=== PATIENT | female | born 1935 | race Two or more races ===

== ENCOUNTER 2020-09-20 10:16 | Emergency (ER) | payer SELFPAY ==
[2020-09-20] MEDS ORDERED: Sodium Chloride 0.9% 2.5 ML Syringe FLUSH PRN (10:28)
[2020-09-20] MEDS ORDERED: Aspirin 81 MG Tab.Chew PO ONE (10:28)
[2020-09-20] MEDS ORDERED: Sodium Chloride 0.9% 10 ML Syringe FLUSH PRN (10:28)
--- NOTE | 2020-09-20 10:32 | PCM.EKG ---
#1 Interpretation EKG Date: 09/20/20 Time: 10:20 Rhythm: NSR Rate (Beats/Min): 86 ST-T: Normal
--- NOTE | 2020-09-20 10:52 | EDM.PDOC ---
ED HPI GENERAL MEDICAL PROBLEM - General Chief Complaint: Chest Pain Stated Complaint: SOB Time Seen by Provider: 09/20/20 10:26 Source of Information: Reports: Patient History Limitations: Reports: No Limitations - History of Present Illness INITIAL COMMENTS - FREE TEXT/NARRATIVE: HISTORY AND PHYSICAL: History of present illness: Patient is an 85-year-old female who presents to the emergency room with her granddaughter with complaints of chest pain, shortness of breath and bilateral calf pain. States she woke up with chest pain and SOB, this has resolved and now has bilateral leg/calf/knee pain. The granddaughter states that over the past few weeks the patient has had several health complaints such as chest pain and shortness of breath. Patient was previously was living in [place], moved to [place] this past week to be with granddaughter. Granddaughter states the patient had been on so many different medications all the time, "we don't know what she was on or why". Patient states she just took medications that the doctor gave her. PMH of DM type 2, hypertension and "fluid on my lungs". 2 weeks ago she was having chest pain and shortness of breath, was seen by provider and placed on oxygen. Was told she had a bladder infection, but was not treated with any antibiotics. Patient states she is unsure of why she was placed on oxygen but did feel improvement when using it. Most recently she has been taking digoxin and lisinopril, and Metformin but ran out of these medications 2 weeks ago. Patient denies any fever, chills, headache, change in vision, syncope or near syncope. Denies any current chest pain, back pain, shortness of breath or cough. Denies any abdominal pain, nausea, vomiting, diarrhea, constipation or dysuria. Has not noted any blood in urine or stool. Patient has been eating and drinking appropriately. Primary language: Azeri. Market Sales Manager used (BEE/daughter) Review of systems: As per history of present illness and below otherwise all systems reviewed and negative. Past medical history: As per history of present illness and as reviewed below otherwise noncontributory. Surgical history: As per history of present illness and as reviewed below otherwise noncontributory. Social history: See social history for further information Family history: As per history of present illness and as reviewed below otherwise noncontributory. Physical exam: General: Well developed and well nourished. Alert and orientated x 3. Nontoxic in appearance and in no acute distress. Vital signs are stable and have been reviewed by me. Nursing notes were reviewed. HEENT: Atraumatic, normocephalic, pupils equal and reactive bilaterally, negative for conjunctival pallor or scleral icterus, mucous membranes moist, TMs normal bilaterally, throat clear, neck supple, nontender, trachea midline. No drooling or trismus noted. No meningeal signs. No hot potato voice noted. Lungs: Slightly diminished to auscultation bilaterally. No wheezes, rales, or rhonchi. Chest nontender. Normal work of breathing, no accessory muscles used. Heart: S1S2, regular rate and rhythm without overt murmur, gallops, or rubs. No JVD. No peripheral edema Abdomen: Soft, nondistended, nontender. Normoactive bowel sounds. Negative for masses or costovertebral tenderness. Pelvis: Stable nontender. Genitourinary/Rectal: Deferred. Skin: Intact, warm, dry. No lesions or rashes noted. Hematologic: No petechiae or purpra. Mucosa appropriate color and normal nail bed color and refill. Extremities: Atraumatic, moves all extremities per self without difficulty or deficits, bilateral calf pain (no swelling, redness, or obvious deformity). Strong pedal and pretibial pulses bilaterally. Neurovascular unremarkable. Neuro: Awake, alert, oriented. Cranial nerves II through XII unremarkable. Cerebellum unremarkable. Motor and sensory unremarkable throughout. Exam nonfocal. Psychiatric: Mood and affect are appropriate. Normal thought process. Answering questions appropriately. Notes: *This patient was seen and evaluated during the 2019 SARS-CoV-2 novel coronavirus pandemic period. Community viral transmission is ongoing at time of this encounter and the emergency department is operating under pandemic response procedures. Chest x-ray shows mild cardiomegaly and pulmonary venous congestion but no pulmonary edema. Bilateral lower extremity ultrasound is negative. Patient's D-dimer is elevated, will do a CT to rule out PE. CT chest shows no evidence of pulmonary embolism. Mild cardiomegaly with aortic valve calcifications. Shallow inspiration with crowded markings/ground-glass opacity and subsegmental atelectasis or scarring in both bases. Vital signs are stable. I have talked with the patient about today's findings, in addition to providing specific details for plan of care. Due to patient's medications, age and drug interactions I will put her on Augmentin for her UTI. Culture has been added. Reassessment at the time of disposition demonstrates that the patient is in no acute distress. The patient is stable for discharge, counseling was provided and we discussed in great detail signs and symptoms that would prompt them to return to the Emergency Department. Medication, follow up and supportive care measures were reviewed and discussed. Voices understanding and is agreeable to plan of care. Denies any further questions or concerns at this time. Diagnostics: CBC, CMP, D.Dimer, Troponin, EKG, CXR, Bilat LE U/S, CTA chest Therapeutics: NS, ASA, Toradol Prescription: Augmentin Impression: Chest pain nonspecific Medication refill UTI Plan: 1. Your lab work is unremarkable, with the exception of a bladder infection. Please take your antibiotic as directed. Increase your water intake. Your EKG, CXR and CT chest shows no acute or concerning findings. Due to your recent move to [place] and not having all your medications refilled, I would like you to establish care with a primary care provider and be seen in the next 1 week or so. You can then establish care and have all your medications reviewed and refilled if needed. 2. You can alternate Tylenol and ibuprofen as needed for pain and fever management. 3. If your symptoms should worsen, new symptoms develop or any of the signs and symptoms we discussed should arise please return to the emergency room or call 911 (if needed). Definitive disposition and diagnosis as appropriate pending reevaluation and review of above. Right Leg Pain Score (Numeric/FACES): 5 - Related Data Allergies Allergy/AdvReac Type Severity Reaction Status Date / Time No Known Allergies Allergy Verified 09/20/20 10:41 Home Meds: Home Meds Apetifeno 25 mg PO DAILY 09/20/20 [History] Cipril 10 mg PO DAILY 09/20/20 [History] Digoxin 250 mcg PO DAILY 09/20/20 [History] lisinopriL [Lisinopril] 10 mg PO DAILY #30 tablet 09/20/20 [Rx] metFORMIN [Glucophage XR] 500 mg PO BIDMEALS 09/20/20 [History] metFORMIN [Glucophage] 500 mg PO BIDMEALS 30 Days #60 tab 09/20/20 [Rx] ED ROS GENERAL - Review of Systems Review Of Systems: Comprehensive ROS is negative, except as noted in HPI. ED EXAM, GENERAL - Physical Exam Exam: See Below (See dictation) Course - Vital Signs Last Recorded V/S: Last Vital Signs Temp 97.3 F 09/20/20 10:34 Pulse 63 09/20/20 13:59 Resp 16 09/20/20 13:59 BP 148/67 H 09/20/20 13:59 Pulse Ox 93 L 09/20/20 13:59 - Orders/Labs/Meds Orders: Active Orders 24 hr Category Date Time Status EKG 12 Lead [EKG Documentation Completion] [RC] STAT Care 09/20/20 12:10 Active UA RFX MICHAEL AND CULT IF INDIC [URIN] Stat Lab 09/20/20 14:25 Received Sodium Chloride 0.9% [Saline Flush] Med 09/20/20 10:28 Active 10 ml FLUSH ASDIRECTED PRN Sodium Chloride 0.9% [Saline Flush] Med 09/20/20 10:28 Active 2.5 ml FLUSH ASDIRECTED PRN Saline Lock Insert [OM.PC] Stat Oth 09/20/20 10:28 Ordered Medication Orders Sodium Chloride (Saline Flush) 10 ml FLUSH ASDIRECTED PRN PRN Reason: Keep Vein Open Last Admin: 09/20/20 10:49 Dose: 10 ml Documented by: [email or web address] Sodium Chloride (Saline Flush) 2.5 ml FLUSH ASDIRECTED PRN PRN Reason: Keep Vein Open Last Admin: 09/20/20 10:49 Dose: 2.5 ml Documented by: [email or web address] Labs: Laboratory Tests 09/20/20 09/20/20 09/20/20 Range/Units 10:25 10:25 10:25 WBC 3.95 L (4.0-11.0) K/uL RBC 4.51 (4.30-5.90) M/uL Hgb 13.1 (12.0-16.0) g/dL Hct 41.4 (36.0-46.0) % MCV 91.8 (80.0-98.0) fL MCH 29.0 (27.0-32.0) pg MCHC 31.6 (31.0-37.0) g/dL RDW Std Deviation 45.0 (28.0-62.0) fl RDW Coeff of [place] 13 (11.0-15.0) % Plt Count 249 (150-400) K/uL MPV 10.80 (7.40-12.00) fL Neut % (Auto) 49.6 (48.0-80.0) % Lymph % (Auto) 38.7 (16.0-40.0) % [place] % (Auto) 8.4 (0.0-15.0) % Eos % (Auto) 2.5 (0.0-7.0) % Baso % (Auto) 0.8 (0.0-1.5) % Neut # (Auto) 2.0 (1.4-5.7) K/uL Lymph # (Auto) 1.5 (0.6-2.4) K/uL [place] # (Auto) 0.3 (0.0-0.8) K/uL Eos # (Auto) 0.1 (0.0-0.7) K/uL Baso # (Auto) 0.0 (0.0-0.1) K/uL Nucleated RBC % 0.0 /100WBC Nucleated RBCs # 0 K/uL INR 1.00 D-Dimer, Quantitative 0.52 H (0.0-0.50) mg/L FEU Sodium 141 (136-145) mmol/L Potassium 3.4 L (3.5-5.1) mmol/L Chloride 105 (98-107) mmol/L Carbon Dioxide 26.1 (21.0-32.0) mmol/L BUN 11 (7.0-18.0) mg/dL Creatinine 0.8 (0.6-1.0) mg/dL Est Cr Clr Drug Dosing 36.26 mL/min Estimated GFR (MDRD) > 60.0 ml/min Glucose 157 H (74-106) mg/dL Calcium 9.2 (8.5-10.1) mg/dL Total Bilirubin 0.5 (0.2-1.0) mg/dL AST 20 (15-37) IU/L ALT 33 (14-63) IU/L Alkaline Phosphatase 73 (46-116) U/L Troponin I < 0.050 (0.000-0.056) ng/mL Total Protein 7.2 (6.4-8.2) g/dL Albumin 3.3 L (3.4-5.0) g/dL Globulin 3.9 (2.6-4.0) g/dL Albumin/Globulin Ratio 0.9 (0.9-1.6) Urine Color Urine Appearance Urine pH (5.0-8.0) Ur Specific [place] (1.001-1.035) Urine Protein (NEGATIVE) mg/dL Urine Glucose (UA) (NEGATIVE) mg/dL Urine Ketones (NEGATIVE) mg/dL Urine Occult Blood (NEGATIVE) Urine Nitrite (NEGATIVE) Urine Bilirubin (NEGATIVE) Urine Urobilinogen (<2.0) EU/dL Ur Leukocyte Esterase (NEGATIVE) Urine RBC (0-2/HPF) Urine WBC (0-5/HPF) Ur Epithelial Cells (NONE-FEW) Urine Bacteria (NEGATIVE) SARS-CoV-2 RNA (KALI) (NEGATIVE) 09/20/20 09/20/20 Range/Units 12:01 14:25 WBC (4.0-11.0) K/uL RBC (4.30-5.90) M/uL Hgb (12.0-16.0) g/dL Hct (36.0-46.0) % MCV (80.0-98.0) fL MCH (27.0-32.0) pg MCHC (31.0-37.0) g/dL RDW Std Deviation (28.0-62.0) fl RDW Coeff of [place] (11.0-15.0) % Plt Count (150-400) K/uL MPV (7.40-12.00) fL Neut % (Auto) (48.0-80.0) % Lymph % (Auto) (16.0-40.0) % [place] % (Auto) (0.0-15.0) % Eos % (Auto) (0.0-7.0) % Baso % (Auto) (0.0-1.5) % Neut # (Auto) (1.4-5.7) K/uL Lymph # (Auto) (0.6-2.4) K/uL [place] # (Auto) (0.0-0.8) K/uL Eos # (Auto) (0.0-0.7) K/uL Baso # (Auto) (0.0-0.1) K/uL Nucleated RBC % /100WBC Nucleated RBCs # K/uL INR D-Dimer, Quantitative (0.0-0.50) mg/L FEU Sodium (136-145) mmol/L Potassium (3.5-5.1) mmol/L Chloride (98-107) mmol/L Carbon Dioxide (21.0-32.0) mmol/L BUN (7.0-18.0) mg/dL Creatinine (0.6-1.0) mg/dL Est Cr Clr Drug Dosing mL/min Estimated GFR (MDRD) ml/min Glucose (74-106) mg/dL Calcium (8.5-10.1) mg/dL Total Bilirubin (0.2-1.0) mg/dL AST (15-37) IU/L ALT (14-63) IU/L Alkaline Phosphatase (46-116) U/L Troponin I (0.000-0.056) ng/mL Total Protein (6.4-8.2) g/dL Albumin (3.4-5.0) g/dL Globulin (2.6-4.0) g/dL Albumin/Globulin Ratio (0.9-1.6) Urine Color YELLOW Urine Appearance SLT CLOUDY Urine pH 6.0 (5.0-8.0) Ur Specific [place] <= 1.005 (1.001-1.035) Urine Protein NEGATIVE (NEGATIVE) mg/dL Urine Glucose (UA) NEGATIVE (NEGATIVE) mg/dL Urine Ketones NEGATIVE (NEGATIVE) mg/dL Urine Occult Blood TRACE-INTACT H (NEGATIVE) Urine Nitrite POSITIVE H (NEGATIVE) Urine Bilirubin NEGATIVE (NEGATIVE) Urine Urobilinogen 0.2 (<2.0) EU/dL Ur Leukocyte Esterase SMALL H (NEGATIVE) Urine RBC 0-2 (0-2/HPF) Urine WBC 8-12 (0-5/HPF) Ur Epithelial Cells FEW (NONE-FEW) Urine Bacteria 3+ H (NEGATIVE) SARS-CoV-2 RNA (KALI) NEGATIVE (NEGATIVE) Meds: Medications Generic Name Dose Route Start Last Admin Trade Name Freq PRN Reason Stop Dose Admin Sodium Chloride 10 ml 09/20/20 10:28 09/20/20 10:49 Saline Flush FLUSH 10 ml ASDIRECTED PRN Administration Keep Vein Open Sodium Chloride 2.5 ml 09/20/20 10:28 09/20/20 10:49 Saline Flush FLUSH 2.5 ml ASDIRECTED PRN Administration Keep Vein Open Discontinued Medications Generic Name Dose Route Start Last Admin Trade Name Juliana PRN Reason Stop Dose Admin Amoxicillin/Clavulanate Potassium 1 tab 09/20/20 14:46 Augmentin 875 Mg/125 Mg PO 09/20/20 14:47 ONETIME ONE Aspirin 324 mg 09/20/20 10:28 09/20/20 10:48 Aspirin PO 09/20/20 10:29 324 mg ONETIME ONE Administration Iopamidol 80 ml 09/20/20 12:44 09/20/20 12:55 Isovue Multipack-370 (76%) IVPUSH 09/20/20 12:45 80 ml ONETIME STA Administration Ketorolac Tromethamine 15 mg 09/20/20 14:24 09/20/20 14:29 Toradol IVPUSH 09/20/20 14:25 15 mg NOW STA Administration Departure - Departure Time of Disposition: 14:30 Disposition: Home, Self-Care 01 Clinical Impression: Medication refill, Nonspecific chest pain UTI (urinary tract infection) Qualifiers: Urinary tract infection type: acute cystitis Hematuria presence: with hematuria Qualified Code(s): N30.01 - Acute cystitis with hematuria - Discharge Information Prescriptions: metFORMIN [Glucophage] 500 mg PO BIDMEALS 30 Days #60 tab lisinopriL [Lisinopril] 10 mg PO DAILY #30 tablet Instructions: Urinary Tract Infection, Adult, [id number], Nonspecific Chest Pain, Adult, [id number] Referrals: PCP,Not In Area [Primary Care Provider] - Forms: ED Department Discharge Additional Instructions: The following information is given to patients seen in the emergency department who are being discharged to home. This information is to outline your options for follow-up care. We provide all patients seen in our emergency department with a follow-up referral. The need for follow-up, as well as the timing and circumstances, are variable depending upon the specifics of your emergency department visit. If you don't have a primary care physician on staff, we will provide you with a referral. We always advise you to contact your personal physician following an emergency department visit to inform them of the circumstance of the visit and for follow-up with them and/or the need for any referrals to a consulting specialist. The emergency department will also refer you to a specialist when appropriate. This referral assures that you have the opportunity for follow-up care with a specialist. All of these measure are taken in an effort to provide you with optimal care, which includes your follow-up. Under all circumstances we always encourage you to contact your private physician who remains a resource for coordinating your care. When calling for follow-up care, please make the office aware that this follow-up is from your recent emergency room visit. If for any reason you are refused follow-up, please contact the [facility] Emergency Department at and asked to speak to the emergency department charge nurse. [facility] [address] [place] [id number] [address] Thank you for choosing the [facility] emergency department in [place] for your medical needs today. It was a pleasure caring for you. Today you were seen in the emergency department for chest pain, shortness of breath and leg pain. 1. Your lab work is unremarkable, with the exception of a bladder infection. Please take your antibiotic as directed. Increase your water intake. Your EKG, CXR and CT chest shows no acute or concerning findings. Due to your recent move to [place] and not having all your medications refilled, I would like you to establish care with a primary care provider and be seen in the next 1 week or so. You can then establish care and have all your medications reviewed and refilled if needed. 2. You can alternate Tylenol and ibuprofen as needed for pain and fever management. 3. If your symptoms should worsen, new symptoms develop or any of the signs and symptoms we discussed should arise please return to the emergency room or call 911 (if needed). Sepsis Event Note (ED) - Focused Exam Vital Signs: Vital Signs Temp Pulse Resp BP Pulse Ox 09/20/20 13:59 63 16 148/67 H 93 L 09/20/20 13:30 74 16 159/59 H 96 09/20/20 13:00 72 16 159/52 H 96 09/20/20 12:30 74 16 147/71 H 94 L 09/20/20 12:14 74 16 138/72 97 09/20/20 12:00 71 16 120/75 96 09/20/20 11:44 66 16 157/65 H 94 L 09/20/20 11:29 68 16 148/66 H 93 L 09/20/20 11:14 73 16 141/69 H 93 L 09/20/20 11:00 77 16 147/69 H 94 L 09/20/20 10:45 76 17 170/64 H 93 L 09/20/20 10:34 97.3 F 86 18 184/96 H 97 - My Orders Last 24 Hours: My Active Orders 09/20/20 10:28 Sodium Chloride 0.9% [Saline Flush] 10 ml FLUSH ASDIRECTED PRN Sodium Chloride 0.9% [Saline Flush] 2.5 ml FLUSH ASDIRECTED PRN Saline Lock Insert [OM.PC] Stat 09/20/20 14:25 UA RFX MICHAEL AND CULT IF INDIC [URIN] Stat - Assessment/Plan Last 24 Hours: My Active Orders 09/20/20 10:28 Sodium Chloride 0.9% [Saline Flush] 10 ml FLUSH ASDIRECTED PRN Sodium Chloride 0.9% [Saline Flush] 2.5 ml FLUSH ASDIRECTED PRN Saline Lock Insert [OM.PC] Stat 09/20/20 14:25 UA RFX MICHAEL AND CULT IF INDIC [URIN] Stat
[2020-09-20 11:04] LABS: BLOOD UREA NITROGEN,BUN 11 mg/dL (7.0-18.0); CARBON DIOXIDE,CO2 26.1 mmol/L (21.0-32.0); CHLORIDE,CL 105 mmol/L (98-107); GLUCOSE RANDOM 157 mg/dL (74-106); POTASSIUM,K 3.4 mmol/L (3.5-5.1); SODIUM,NA 141 mmol/L (136-145)
--- NOTE | 2020-09-20 11:22 | CR ---
INDICATION: SOB. TECHNIQUE: Portable AP image of the chest. COMPARISON: None. FINDINGS: Lordotic projection. Lungs and pleural space is clear. Heart mildly enlarged. Pulmonary veins congested. No significant bony abnormality. IMPRESSION: Mild cardiomegaly and pulmonary venous congestion but no pulmonary edema. Dictated by Leno Gutierrez MD @ Sep 20 2020 11:20AM Signed by Dr. Leno Gutierrez @ Sep 20 2020 11:22AM
--- NOTE | 2020-09-20 11:22 | US ---
INDICATION: Bilateral calf pain. Recent car travel. TECHNIQUE: Grayscale two-dimensional ultrasound without and with compression as well as color-flow and spectral Doppler of the lower extremity veins bilaterally. COMPARISON: None. FINDINGS: Normal compressibility of and flow within the common femoral, superficial femoral, popliteal, posterior tibial, profunda, and greater saphenous veins is demonstrated bilaterally. No thrombus is identified. IMPRESSION: Negative bilateral lower extremity venous Doppler study. Dictated by Leno Gutierrez MD @ Sep 20 2020 11:19AM Signed by Dr. Leno Gutierrez @ Sep 20 2020 11:20AM
[2020-09-20] MEDS ORDERED: Iopamidol 755 MG/ML 500 ML Multipack Bottle IVPUSH STA (12:44)
--- NOTE | 2020-09-20 14:12 | CT ---
INDICATION: Chest pain and SOB. Recent travel. Rule out pulmonary embolism. TECHNIQUE: Volumetric helical scanning of the thorax was performed during infusion of 80 cc of Isovue 370 contrast material IV, timing optimized for pulmonary arterial opacification. Coronal and sagittal reconstructions were obtained. COMPARISON: Chest x-ray of 09/20/2020. FINDINGS: The images are of acceptable quality and demonstrate uniform vascular enhancement within the pulmonary arteries. No pulmonary arterial filling defect is identified. The heart is mildly enlarged. Aortic valve calcifications are noted. Calcified coronary arterial plaque is demonstrated. The lungs are low in volume with crowded markings/ground-glass opacity. Subsegmental atelectasis or scarring is present in the lung bases. No pleural effusion is demonstrated. No airway abnormality is evident. No mediastinal or hilar lymphadenopathy is demonstrated. Images of the upper abdomen are unremarkable except for a 2 cm left renal parenchymal cyst. IMPRESSION: 1. Negative for pulmonary embolism. 2. Mild cardiomegaly with aortic valve calcifications. 3. Shallow inspiration with crowded markings/ground-glass opacity and subsegmental atelectasis or scarring in both bases. Please note that all CT scans at this facility use dose modulation, iterative reconstruction, and/or weight-based dosing when appropriate to reduce radiation dose to as low as reasonably achievable. Dictated by Leno Gutierrez MD @ Sep 20 2020 2:05PM Signed by Dr. Leno Gutierrez @ Sep 20 2020 2:10PM
[2020-09-20] MEDS ORDERED: Ketorolac 15 MG/ML SDV IVPUSH STA (14:24)
[2020-09-20] MEDS ORDERED: Amoxicillin/Clavulanate K 875-125 MG Tab PO ONE (14:46)
== END 2020-09-20 15:12 | disposition home or self-care (01) ==
LOC: MW.ED 10:16
DX: R07.9 Chest pain, unspecified (principal); Z76.0 Encounter for issue of repeat prescription; E11.9 Type 2 diabetes mellitus without complications; I10 Essential (primary) hypertension; N30.01 Acute cystitis with hematuria; Z79.84 Long term (current) use of oral hypoglycemic drugs; Z79.899 Other long term (current) drug therapy; Z20.822 Contact with and (suspected) exposure to COVID-19
CPT/HCPCS: 36415; 71045; 71275; 80053; 81001; 84484; 85025; 85379; 85610; 87086; 87088; 87186; 87635; 93005; 93970; 96374; 99285; A9270; J1885; Q9967; 93010; 99284; U0002

== ENCOUNTER 2020-09-21 13:01 | Emergency (ER) | payer SELFPAY ==
--- NOTE | 2020-09-21 14:37 | PCM.EKG ---
#1 Interpretation EKG Date: 09/21/20 Time: 13:58 Rhythm: NSR EKG Interpretation Comments: Heart rate = 74 bpm, normal sinus rhythm, normal QRS interval, no STEMI. EKG and rhythm strip interpreted by me at 135
--- NOTE | 2020-09-21 14:54 | CT ---
INDICATION: Abdominal pain COMPARISON: None TECHNIQUE: CT examination of the abdomen and pelvis was performed without intravenous contrast. Thin section axial images were obtained from the lung bases through the pubic symphysis. Oral contrast was not administered. Please note that all CT scans at this facility use dose modulation, iterative reconstruction, and/or weight-based dosing when appropriate to reduce radiation dose to as low as reasonably achievable. FINDINGS: LUNG BASES: Heart is enlarged at the lung bases. There atherosclerotic vascular and valvular calcifications. Opacities of the lung bases are likely atelectatic and fibrotic. No visible pleural effusion. LIVER/BILIARY SYSTEM:Liver normal in size. There is a 2 centimeter right lobe cyst. No biliary ductal dilatation. Evidence of remote granulomatous infection. Contrast within the gallbladder from an injection performed for a chest CT yesterday. ADRENALS: Normal non-contrast appearance KIDNEYS, URETERS and BLADDER:Bilateral renal lesions. These could represent cysts though there may be some wall calcification associated with the right mid pole renal lesion. The kidneys could be further studied by multiphase CT with and without contrast if clinically warranted. Renal calcifications are noted without evidence of obstructive uropathy. The bladder appears normal SPLEEN:Normal non-contrast appearance. PANCREAS: Normal non-contrast appearance. RETROPERITONEUM and MESENTERY: There is no mass, adenopathy or aortic aneurysm. Atherosclerotic vascular calcification GASTROINTESTINAL SYSTEM: There is no evidence of diverticulitis, colitis, mechanical obstruction, or appendicitis. The small bowel as visualized appears normal. PELVIS: No mass, adenopathy or free fluid. OSSEOUS STRUCTURES and ABDOMINAL WALL: Demineralization and degenerative change without acute fracture or destructive process.No significant anterior abdominal wall defects. OTHER: No free fluid or free air. IMPRESSION: 1. There is no visible etiology for abdominal pain. 2. Enlarged heart. Basilar parenchymal opacities likely atelectatic and fibrotic. 3. Probably benign but strictly speaking indeterminate renal lesions. These would best be study by multiphase CT which should be considered at a clinically appropriate time. 4. Other incidental nonacute appearing findings as discussed above Please note that all CT scans at this facility use dose modulation, iterative reconstruction, and/or weight-based dosing when appropriate to reduce radiation dose to as low as reasonably achievable. Dictated by Tavon Hicks MD @ Sep 21 2020 2:42PM Signed by Dr. Tavon Hicks @ Sep 21 2020 2:51PM
--- NOTE | 2020-09-21 16:00 | EDM.PDOC ---
ED HPI GENERAL MEDICAL PROBLEM - General Chief Complaint: Gastrointestinal Problem Stated Complaint: STOMACHE AND BREATHING Time Seen by Provider: 09/21/20 13:27 Source of Information: Reports: Patient History Limitations: Reports: No Limitations - History of Present Illness INITIAL COMMENTS - FREE TEXT/NARRATIVE: Patient is an 85-year-old female who presents to the emergency room with her granddaughter with complaints of abdominal pain patient does not speak Icelandic but her granddaughter is fluent in both Icelandic and Armenian. The patient points to pain on either side of the umbilicus. The granddaughter states that over the past the past few weeks patient has had several complaints such as chest pain, shortness of breath and knee pain. In fact, she was seen in this emergency room yesterday with a complaint of chest pain, shortness of breath and bilateral calf pain. She was worked up with a CT angio of the chest, EKG x2, lab work. No acute findings except UTI. She was given prescriptions for Metformin, lisinopril and Augmentin and discharged. Patient was previously living in [place] and moved to [place] this past week to be with her granddaughter. The granddaughter states the patient has been on many different medications all of the time but they did not know what the medications were or why she was taking them. Known past medical history of diabetes type 2, hypertension and CHF. Most recently, she had been taking digoxin, lisinopril and Metformin but ran out of these medications 2 weeks ago. About 2 weeks ago she was having chest pain and shortness of breath and was seen by a provider and placed on oxygen. At that time she was told she had a bladder infection but was not treated with any antibiotics. The patient did not know why she was placed on oxygen but did feel better after using it. Lower Abdomen Pain Score (Numeric/FACES): 10 - Related Data Allergies Allergy/AdvReac Type Severity Reaction Status Date / Time No Known Allergies Allergy Verified 09/21/20 13:28 Home Meds: Home Meds Amoxicillin/Clavulanate K [Augmentin 500-125 MG] 1 tab PO BID 7 Days #14 tablet 09/20/20 [Rx] Apetifeno 25 mg PO DAILY 09/20/20 [History] Cipril 10 mg PO DAILY 09/20/20 [History] Digoxin 250 mcg PO DAILY 09/20/20 [History] lisinopriL [Lisinopril] 10 mg PO DAILY #30 tablet 09/20/20 [Rx] metFORMIN [Glucophage XR] 500 mg PO BIDMEALS 09/20/20 [History] metFORMIN [Glucophage] 500 mg PO BIDMEALS 30 Days #60 tab 09/20/20 [Rx] Past Medical History Cardiovascular History: Reports: Heart Failure, High Cholesterol, Hypertension Other Cardiovascular History: "fluid on lungs" Endocrine/Metabolic History: Reports: Diabetes, Type II - Infectious Disease History Infectious Disease History: Reports: None Social & Family History - Tobacco Use Tobacco Use Status *Q: Never Tobacco User - Caffeine Use Caffeine Use: Reports: None - Recreational Drug Use Recreational Drug Use: No ED ROS GENERAL - Review of Systems Review Of Systems: Comprehensive ROS is negative, except as noted in HPI. ED EXAM, GI/ABD - Physical Exam Exam: See Below Exam Limited By: No Limitations General Appearance: Alert, No Apparent Distress Ears: Normal External Exam Nose: Normal Inspection Throat/Mouth: Normal Inspection Head: Atraumatic, Normocephalic Neck: Normal Inspection Respiratory/Chest: No Respiratory Distress, Lungs Clear, Normal Breath Sounds, Crackles (Few in the bases) Cardiovascular: Normal Peripheral Pulses, Regular Rate, Rhythm, No Edema GI/Abdominal Exam: Soft, Non-Tender, No Distention. No: Distended Neurological: Alert, Oriented Psychiatric: Normal Affect, Normal Mood Skin Exam: Warm, Dry, Intact, Normal Color, No Rash Lymphatic: No Adenopathy Course - Vital Signs Last Recorded V/S: Last Vital Signs Temp 36.8 C 09/21/20 13:28 Pulse 86 09/21/20 13:28 Resp 18 09/21/20 13:28 BP 175/75 H 09/21/20 13:28 Pulse Ox 96 09/21/20 13:28 - Orders/Labs/Meds Orders: Active Orders 24 hr Category Date Time Status EKG 12 Lead [EKG Documentation Completion] [RC] ROUTINE Care 09/21/20 13:53 Active Departure - Departure Time of Disposition: 16:05 Disposition: Home, Self-Care 01 Condition: Good Clinical Impression: Abdominal pain Constipation Qualifiers: Constipation type: other constipation type Qualified Code(s): K59.09 - Other constipation - Discharge Information Referrals: PCP,None [Primary Care Provider] - Forms: ED Department Discharge Additional Instructions: The following information is given to patients seen in the emergency department who are being discharged to home. This information is to outline your options for follow-up care. We provide all patients seen in our emergency department with a follow-up referral. The need for follow-up, as well as the timing and circumstances, are variable depending upon the specifics of your emergency department visit. If you don't have a primary care physician on staff, we will provide you with a referral. We always advise you to contact your personal physician following an emergency department visit to inform them of the circumstance of the visit and for follow-up with them and/or the need for any referrals to a consulting specialist. The emergency department will also refer you to a specialist when appropriate. This referral assures that you have the opportunity for follow-up care with a specialist. All of these measure are taken in an effort to provide you with optimal care, which includes your follow-up. Under all circumstances we always encourage you to contact your private physician who remains a resource for coordinating your care. When calling for follow-up care, please make the office aware that this follow-up is from your recent emergency room visit. If for any reason you are refused follow-up, please contact the [facility] Emergency Department at and asked to speak to the emergency department charge nurse. 1. You have indicated that you already have an appointment in family practice for follow-up of your chronic medical problems and prescriptions. 2. Finish antibiotic for your urinary tract infection. 3. If constipated, you may take Lyrica MiraLAX every morning. If you still are constipated you may take 1 bottle of mag citrate which can be purchased at the pharmacy. Sepsis Event Note (ED) - Evaluation Sepsis Screening Result: No Definite Risk - Focused Exam Vital Signs: Vital Signs Temp Pulse Resp BP Pulse Ox 09/21/20 13:28 36.8 C 86 18 175/75 H 96 - My Orders Last 24 Hours: My Active Orders 09/21/20 13:53 EKG 12 Lead [EKG Documentation Completion] [RC] ROUTINE - Assessment/Plan Last 24 Hours: My Active Orders 09/21/20 13:53 EKG 12 Lead [EKG Documentation Completion] [RC] ROUTINE
== END 2020-09-21 16:16 | disposition home or self-care (01) ==
LOC: MW.ED 13:01
DX: K59.09 Other constipation (principal); M79.662 Pain in left lower leg; M79.661 Pain in right lower leg; R07.9 Chest pain, unspecified; R06.02 Shortness of breath; I11.0 Hypertensive heart disease with heart failure; I50.9 Heart failure, unspecified; E11.9 Type 2 diabetes mellitus without complications; Z79.899 Other long term (current) drug therapy
CPT/HCPCS: 74176; 74176-26; 93005; 93010; 99283; 99284-25

== ENCOUNTER 2021-01-20 21:45 | Emergency (ER) | payer MEDICARE, MEDICAID ==
[2021-01-20] MEDS ORDERED: Sodium Chloride 0.9% 2.5 ML Syringe FLUSH PRN (22:24)
[2021-01-20] MEDS ORDERED: Sodium Chloride 0.9% 10 ML Syringe FLUSH PRN (22:24)
[2021-01-20] MEDS ORDERED: Ondansetron 4 MG/2 ML SDV IVPUSH ONE (22:25)
[2021-01-20] MEDS ORDERED: Sodium Chloride 0.9% 1,000 ML IV ONE (22:25)
[2021-01-20] MEDS ORDERED: HYDROmorphone 1 MG/ML Syringe IVPUSH ONE (22:25)
--- NOTE | 2021-01-20 22:27 | EDM.PDOC ---
ED HPI GENERAL MEDICAL PROBLEM - General Chief Complaint: Abdominal Pain Stated Complaint: ABDOMINAL PAIN Time Seen by Provider: 01/20/21 22:05 - History of Present Illness INITIAL COMMENTS - FREE TEXT/NARRATIVE: History of present illness: [] The patient has abdominal pain for 3 days. Its in the right upper quadrant. It is worse with her postprandial time and she has nausea. She has no bowel movement today but had one last night. She has no dysuria. She does have left flank pain. The patient has no abdominal surgery. She is diabetic. She is not treated for hypertension. Patient does not smoke drink or use drugs Review of systems: As per history of present illness and below otherwise all systems reviewed and negative. Past medical history: As per history of present illness and as reviewed below otherwise n oncontributory. Surgical history: As per history of present illness and as reviewed below otherwise noncontributory. Social history: No reported history of drug or alcohol abuse. Family history: As per history of present illness and as reviewed below otherwise noncontributory. Physical exam: Constitutional - well developed, well-nourished and in no acute distress HEENT - normocephalic, no evidence of trauma - external nose and mouth normal - no mass in neck and no JVD - mucosae moist EYES - full EOM, PERRL, no icterus - no evidence of inflammation, injection, or drainage Respiratory - no respiratory distress, equal bilateral expansion, lungs clear to auscultation and no abnormal lung sounds Cardiovascular - Regular Rhythm with S1 and S2 appreciated and no murmur, gallop or rub. GI -tender in the epigastrium only-abdomen soft without distension or organomegaly - normal bowel sounds - no guard or rebound Musculoskeletal no gross deformity of long bones or joints - no tenderness, swelling or edema Neurologic - Alert and oriented times four - CN II-XII grossly intact - motor sensory and coordination symmetrically normal Psychiatric - appropriate mood and affect with normal thought content Hematologic - No petechiae or purpura - mucosa appropriate color and sclera not pale - normal nail bed color and refill Integument - no rash or evidence of trauma - normal turgor Diagnostics: [] Therapeutics: [] Impression: [] Plan: [] Definitive disposition and diagnosis as appropriate pending reevaluation and review of above. Bilateral Upper Abdomen Pain Score (Numeric/FACES): 10 - Related Data Allergies Allergy/AdvReac Type Severity Reaction Status Date / Time No Known Allergies Allergy Verified 01/20/21 22:09 Home Meds: Home Meds Aspirin [Aspirin EC] 81 mg PO DAILY 01/20/21 [History] Chlorthalidone 25 mg PO DAILY 01/20/21 [History] Empagliflozin [Jardiance] 10 mg PO DAILY 01/20/21 [History] Pantoprazole Sodium [Protonix] 20 mg PO DAILY 01/20/21 [History] atorvaSTATin [Lipitor] 20 mg PO DAILY 01/20/21 [History] lisinopriL [Lisinopril] 20 mg PO DAILY 01/20/21 [History] Pantoprazole Sodium [Protonix] 40 mg PO DAILY #60 tablet. 01/21/21 [Rx] Past Medical History Cardiovascular History: Reports: Heart Failure, High Cholesterol, Hypertension Other Cardiovascular History: "fluid on lungs" [employer] History: Reports: Musculoskeletal History: Reports: Arthritis Endocrine/Metabolic History: Reports: Diabetes, Type II, Obesity/BMI 30+ - Infectious Disease History Infectious Disease History: Reports: None - Past Surgical History Musculoskeletal Surgical History: Reports: Other (See Below) Other Musculoskeletal Surgeries/Procedures:: right hand surgery Social & Family History - Family History Family Medical History: No Pertinent Family History - Caffeine Use Caffeine Use: Reports: None ED ROS GENERAL - Review of Systems Review Of Systems: Comprehensive ROS is negative, except as noted in HPI. ED EXAM, GENERAL - Physical Exam Exam: See Below Free Text/Narrative:: My physical exam is in the HPI Course - Vital Signs Text/Narrative:: 00 48 patient's already improved. Granddaughter admits the patient is under a lot of stress. Patient will be sent home on a PPI and told to carry antacids. Last Recorded V/S: Last Vital Signs Temp 36.4 C 01/20/21 22:03 Pulse 88 01/20/21 23:51 Resp 19 01/20/21 23:51 BP 91/64 01/20/21 23:51 Pulse Ox 96 01/20/21 23:51 - Orders/Labs/Meds Orders: Active Orders 24 hr Category Date Time Status Sodium Chloride 0.9% [Saline Flush] Med 01/20/21 22:24 Active 10 ml FLUSH ASDIRECTED PRN Sodium Chloride 0.9% [Saline Flush] Med 01/20/21 22:24 Active 2.5 ml FLUSH ASDIRECTED PRN Saline Lock Insert [OM.PC] Stat Oth 01/20/21 22:24 Ordered Medication Orders Sodium Chloride (Sodium Chloride 0.9% 10 Ml Syringe) 10 ml FLUSH ASDIRECTED PRN PRN Reason: Keep Vein Open Last Admin: 01/20/21 22:40 Dose: 10 ml Documented by: PETRONA Sodium Chloride (Sodium Chloride 0.9% 2.5 Ml Syringe) 2.5 ml FLUSH ASDIRECTED PRN PRN Reason: Keep Vein Open Last Admin: 01/20/21 22:40 Dose: 2.5 ml Documented by: PETRONA Labs: Laboratory Tests 01/20/21 01/20/21 01/21/21 Range/Units 22:35 22:35 00:20 WBC 4.41 (4.0-11.0) K/uL RBC 4.14 L (4.30-5.90) M/uL Hgb 12.1 (12.0-16.0) g/dL Hct 37.0 (36.0-46.0) % MCV 89.4 (80.0-98.0) fL MCH 29.2 (27.0-32.0) pg MCHC 32.7 (31.0-37.0) g/dL RDW Std Deviation 43.8 (28.0-62.0) fl RDW Coeff of Quyen 13 (11.0-15.0) % Plt Count 283 (150-400) K/uL MPV 9.90 (7.40-12.00) fL Neut % (Auto) 48.1 (48.0-80.0) % Lymph % (Auto) 38.5 (16.0-40.0) % Blair % (Auto) 11.1 (0.0-15.0) % Eos % (Auto) 1.6 (0.0-7.0) % Baso % (Auto) 0.7 (0.0-1.5) % Neut # (Auto) 2.1 (1.4-5.7) K/uL Lymph # (Auto) 1.7 (0.6-2.4) K/uL Blair # (Auto) 0.5 (0.0-0.8) K/uL Eos # (Auto) 0.1 (0.0-0.7) K/uL Baso # (Auto) 0.0 (0.0-0.1) K/uL Nucleated RBC % 0.0 /100WBC Nucleated RBCs # 0 K/uL Sodium 139 (136-145) mmol/L Potassium 3.6 (3.5-5.1) mmol/L Chloride 101 (98-107) mmol/L Carbon Dioxide 27.3 (21.0-32.0) mmol/L BUN 32 H (7.0-18.0) mg/dL Creatinine 1.4 H (0.6-1.0) mg/dL Est Cr Clr Drug Dosing 20.72 mL/min Estimated GFR (MDRD) 35.7 ml/min Glucose 178 H (74-106) mg/dL Calcium 9.6 (8.5-10.1) mg/dL Total Bilirubin 0.3 (0.2-1.0) mg/dL AST 17 (15-37) IU/L ALT 16 (14-63) IU/L Alkaline Phosphatase 96 (46-116) U/L Total Protein 7.5 (6.4-8.2) g/dL Albumin 3.5 (3.4-5.0) g/dL Globulin 4.0 (2.6-4.0) g/dL Albumin/Globulin Ratio 0.9 (0.9-1.6) Lipase 344 (73-393) U/L Urine Color YELLOW Urine Appearance CLEAR Urine pH 5.5 (5.0-8.0) Ur Specific [place] 1.020 (1.001-1.035) Urine Protein NEGATIVE (NEGATIVE) mg/dL Urine Glucose (UA) >=1000 (NEGATIVE) mg/dL Urine Ketones NEGATIVE (NEGATIVE) mg/dL Urine Occult Blood NEGATIVE (NEGATIVE) Urine Nitrite NEGATIVE (NEGATIVE) Urine Bilirubin NEGATIVE (NEGATIVE) Urine Urobilinogen 0.2 (<2.0) EU/dL Ur Leukocyte Esterase NEGATIVE (NEGATIVE) Meds: Medications Generic Name Dose Route Start Last Admin Trade Name Freq PRN Reason Stop Dose Admin Sodium Chloride 10 ml 01/20/21 22:24 01/20/21 22:40 Sodium Chloride 0.9% 10 Ml Syringe FLUSH 10 ml ASDIRECTED PRN Administration Keep Vein Open Sodium Chloride 2.5 ml 01/20/21 22:24 01/20/21 22:40 Sodium Chloride 0.9% 2.5 Ml Syringe FLUSH 2.5 ml ASDIRECTED PRN Administration Keep Vein Open Discontinued Medications Generic Name Dose Route Start Last Admin Trade Name Juliana PRN Reason Stop Dose Admin Al Hydroxide/Mg Hydroxide 15 0 ml 01/21/21 00:37 ml/ Metoclopramide HCl 5 mg/ PO 01/21/21 00:38 Lidocaine HCl 5 ml ONETIME ONE Hydromorphone HCl 0.5 mg 01/20/21 22:25 01/20/21 22:41 Hydromorphone 1 Mg/Ml Syringe IVPUSH 01/20/21 22:26 0.5 mg ONETIME ONE Administration Sodium Chloride 1,000 mls @ 1,000 mls/hr 01/20/21 22:25 01/20/21 22:41 Normal Saline IV 01/20/21 23:24 1,000 mls/hr .Bolus ONE Administration Pantoprazole Sodium 40 mg/ 10 mls @ 300 mls/hr 01/21/21 00:38 Sodium Chloride IV 01/21/21 00:39 NOW ONE Ondansetron HCl 4 mg 01/20/21 22:25 01/20/21 22:41 Ondansetron 4 Mg/2 Ml Sdv IVPUSH 01/20/21 22:26 4 mg ONETIME ONE Administration Departure - Departure Time of Disposition: 00:51 Disposition: Home, Self-Care 01 Condition: Good Clinical Impression: Gastritis - Discharge Information Prescriptions: Pantoprazole Sodium [Protonix] 40 mg PO DAILY #60 tablet.dr Referrals: Satish Mark MD [Primary Care Provider] - Forms: ED Department Discharge Additional Instructions: Carry Tums or Maalox and use ad sandeep. Course you have a pain that does not respond to that you can return and we will reassess. [facility] - [facility] [address] [place] [id number] [facility] [address] [place] [id number] The following information is given to patients seen in the emergency department who are being discharged to home. This information is to outline your options for follow-up care. We provide all patients seen in our emergency department with a follow-up referral. The need for follow-up, as well as the timing and circumstances, are variable depending upon the specifics of your emergency department visit. If you don't have a primary care physician on staff, we will provide you with a referral. We always advise you to contact your personal physician following an emergency department visit to inform them of the circumstance of the visit and for follow-up with them and/or the need for any referrals to a consulting specialist. The emergency department will also refer you to a specialist when appropriate. This referral assures that you have the opportunity for follow-up care with a specialist. All of these measure are taken in an effort to provide you with optimal care, which includes your follow-up. Under all circumstances we always encourage you to contact your private physician who remains a resource for coordinating your care. When calling for follow-up care, please make the office aware that this follow-up is from your recent emergency room visit. If for any reason you are refused follow-up, please contact the [facility] Emergency Department at and asked to speak to the emergency department charge nurse. Sepsis Event Note (ED) - Evaluation Sepsis Screening Result: No Definite Risk - Focused Exam Vital Signs: Vital Signs Temp Pulse Resp BP Pulse Ox 01/20/21 23:51 88 19 91/64 96 01/20/21 22:03 36.4 C 94 14 117/82 96 - My Orders Last 24 Hours: My Active Orders 01/20/21 22:24 Sodium Chloride 0.9% [Saline Flush] 10 ml FLUSH ASDIRECTED PRN Sodium Chloride 0.9% [Saline Flush] 2.5 ml FLUSH ASDIRECTED PRN Saline Lock Insert [OM.PC] Stat - Assessment/Plan Last 24 Hours: My Active Orders 01/20/21 22:24 Sodium Chloride 0.9% [Saline Flush] 10 ml FLUSH ASDIRECTED PRN Sodium Chloride 0.9% [Saline Flush] 2.5 ml FLUSH ASDIRECTED PRN Saline Lock Insert [OM.PC] Stat
[2021-01-20 23:01] LABS: CARBON DIOXIDE,CO2 27.3 mmol/L (21.0-32.0); POTASSIUM,K 3.6 mmol/L (3.5-5.1)
[2021-01-21] MEDS ORDERED: Alum Hydrox/Mag Hydrox/Simeth 15 ML, Metoclopramide 5 MG, Lidocaine 2% 5 ML PO ONE ×3 (00:37)
[2021-01-21] MEDS ORDERED: Pantoprazole 40 MG in Sodium Chloride 0.9% 10 ML IV ONE (00:38)
--- NOTE | 2021-01-21 00:38 | CT ---
For Patients: As a result of the Century Cures Act, medical imaging exams and procedure reports are released immediately into your electronic medical record. You may view this report before your referring provider. If you have questions, please contact your health care provider. Indication: Left flank pain Technique: Nonenhanced axial CT imaging through the abdomen and pelvis. Sagittal and coronal reconstructions are provided. Comparison: CT abdomen pelvis without contrast 09/21/2020 Findings: Unremarkable liver except for a small cyst in the inferior right hepatic lobe. Unremarkable gallbladder, spleen, pancreas, and adrenal glands. Aortic atherosclerosis without aneurysm. No abdominal or pelvic lymphadenopathy. Stable bilateral renal cortical cysts. No nephrolithiasis. Unremarkable urinary bladder. Unremarkable stomach. No small bowel wall thickening or abnormal distention. Noninflamed appendix. No colonic wall thickening or mesenteric edema. Multilevel lumbar disc disease and facet arthropathy. Stable minimal anterolisthesis at L4-5. The included lung bases are clear. Impression: No nephrolithiasis or urinary obstruction. No findings to account for left flank pain. Please note that all CT scans at this facility use dose modulation, iterative reconstruction, and/or weight-based dosing when appropriate to reduce radiation dose to as low as reasonably achievable. Dictated by Jarett Riddle MD @ 01/21/2021 12:36:[address] Jarett Riddle @ Jan 21 2021 12:36AM
== END 2021-01-21 01:01 | disposition home or self-care (01) ==
LOC: MW.ED 21:45
DX: K29.70 Gastritis, unspecified, without bleeding (principal); I11.0 Hypertensive heart disease with heart failure; I50.9 Heart failure, unspecified; E78.00 Pure hypercholesterolemia, unspecified; M19.90 Unspecified osteoarthritis, unspecified site; E11.9 Type 2 diabetes mellitus without complications; E66.9 Obesity, unspecified; Z68.27 Body mass index [BMI] 27.0-27.9, adult; Z79.82 Long term (current) use of aspirin; Z79.899 Other long term (current) drug therapy
CPT/HCPCS: 36415; 74176; 80053; 81003; 83690; 85025; 96374; 96375; 99284; A9270; C9113; J1170; J2405; J7030; 99283